=== PATIENT | male | born 1995 | race Asian ===

== ENCOUNTER 2017-07-06 09:51 | Emergency (ER) | payer BC ==
[2017-07-06 10:36] LABS: Hemoglobin 16.2 g/dL (14.0-18.0); Mean Corpuscular HGB CONC 33.9 g/dL (32.0-36.0); Mean Corpuscular Hemoglobin 27.7 pg (27.0-31.0); Mean Corpuscular Volume 81.7 fl (80.0-94.0); Platelet Count 290 thou/uL (130-400); Red Blood Cell (RBC) Count 5.86 mill/uL (4.70-6.10); White Blood Cell (WBC) Count 7.2 thou/uL (4.8-10.8)
[2017-07-06 10:54] LABS: Band 50 % (5-11); Lymphocytes 7 % (21-51); MDiff Complete? YES; Metamyelocyte 2 % (0-0); Monocytes 4 % (0-10); Neutrophil 32 % (42-75); RBC Morphology Normal; Reactive Lymphocytes 5 % (0-10); Reflex for Review?? YES; Toxic Granulation SLIGHT; Vacuoles MODERATE
[2017-07-06 10:56] LABS: ALT (SGPT) 12 U/L (8-55); AST (SGOT) 14 U/L (5-34); Albumin 4.4 g/dL (3.5-5.0); Alkaline Phosphatase 75 U/L (40-150); Anion Gap 17 mmol/L (10-20); BUN (Urea Nitrogen) 19 mg/dL (8.9-20.6); Bilirubin, Total 0.8 mg/dL (0.2-1.2); Calc. Creatinine Clearance 0 mL/min (70-130); Calcium 9.7 mg/dL (7.8-10.44); Carbon Dioxide 22 mmol/L (22-29); Chloride 99 mmol/L (98-107); Estimated GFR-MDRD 76; Globulin 2.9 g/dL (2.4-3.5); Glucose 114 mg/dL (70-105); Potassium 3.5 mmol/L (3.5-5.1); Protein, Total 7.3 g/dL (6.0-8.3); Sodium 134 mmol/L (136-145)
[2017-07-06] MEDS ORDERED: Pantoprazole 40 MG VIAL ONE (11:04)
[2017-07-06] MEDS ORDERED: Ondansetron ODT 4 MG TAB ONE (11:04)
[2017-07-06 11:10] LABS: Bilirubin Negative (Negative); Blood, Urine Negative (Negative); Glucose, Urine (Dipstick) Negative (Negative); Leukocyte Negative (Negative); Nitrite Negative (Negative); Protein, Urine (Dipstick) Negative (Neg-Trace); Urobilinogen 0.2 mg/dL (0.2-1.0)
[2017-07-06 11:13] LABS: Clarity CLEAR (Clear)
--- NOTE | 2017-07-06 12:23 | RAD ---
KUB AND UPRIGHT AND PA CHEST: HISTORY: Abdominal pain. Nausea. FINDINGS: KUB: The bowel gas pattern shows air in both small and large bowel. Slight dilatation of a mid abdo jane small bowel loop, which is nonspecific, as I do not see any proximal obstruction, and there is air in the colon, distally, which may be transitory. If there is any reason to suspect a hernia, the n CT may be helpful. No free air is demonstrated. There is scoliotic change to the spine. CHEST: The heart size and mediastinum are within normal limits. The lungs are clear of infiltrates. IMPRESSION: No definite acute findings. Some slight dilatation of a mid abdominal small bowel loop. This could just be transitory. If there is any reason to suspect any type of hernia or developing closed loop o bstruction, CT would be recommended for assessment. POS: [facility]
[2017-07-06] MEDS ORDERED: ISOVUE-370 76%-LOCM 1 ML ONE (13:40)
--- NOTE | 2017-07-06 13:56 | CT ---
CT ABDOMEN AND PELVIS WITH IV CONTRAST: HISTORY: Abdominal pain, distention, and emesis. No fever or chills. Last bowel movement was 2 days ago. FINDINGS: The lung bases are clear. The liver, spleen, pancreas, adrenal glands, and kidneys are normal. No c alcified gallstones are seen. No free air, free fluid, or lymphadenopathy is noted in the abdomen or pelvis. There is fluid in the nondilated small bowel loops, distended stomach, and right colon. A normal-jamaal earing appendix is present. There is mild scoliosis of the spine. IMPRESSION: Findings are suspicious for enterocolitis. POS: [facility]
== END 2017-07-06 14:30 | disposition home or self-care (01) ==
LOC: ERS 09:51
DX: K52.9 Noninfective gastroenteritis and colitis, unspecified (principal); K21.9 Gastro-esophageal reflux disease without esophagitis
CPT/HCPCS: 36415; 74022; 74177; 80053; 81003; 85025; 85060; 87804; 96361; 96372; 96374; C9113; Q0162